=== PATIENT | female | born 1945 | race Caucasian/White ===

== ENCOUNTER → 2016-06-09 | Outpatient (CLI) | payer MEDICARE, BC ==
[~2016-06-09] MED LIST: APRESOLINE 25MG25 MG PO; ASPIR-LOW81 MG PO; ASPIRIN 81M81 MG/TA2 PO; ASPIRIN E.C. 8181 MG PO; BYSTOLIC5 MG PO; CALCIUM 600600 M2 PO; CALTRATE-600 W600 MG PO; COENZYME Q-1010 MG PO; COENZYME Q-10100 M1 PO; DEMADEX10 MG PO; DEMADEX5 MG PO; FISH OIL1 IU PO; HYDRODIURIL50 MG PO; LISINOPRIL10 MG PO; MASON NATURAL1200 MG PO; MULTIPLE VITAMI1 TA2 PO; MVI; NIASPAN1000 MG PO; NORVASC; NORVASC 10MG10 MG PO; PRILOSEC10 MG PO; PRILOTC PO; PRINIVIL40 MG PO; SIMVASTATIN10 MG PO; VITAMIN D31000 I1 PO; VITAMIN D31000 IU PO; ZANTAC 150MG T150 MG PO; ZOCOR 20MG20 MG PO
== END ==
LOC: MC.RAD 09:31
DX: Z12.31 Encounter for screening mammogram for malignant neoplasm of breast (principal)

== ENCOUNTER 2016-06-19 22:18 | Emergency (ER) | payer MEDICARE, BC ==
[~2016-06-19] VITALS: Ht 165.1 cm; Wt 90.9 kg
[~2016-06-19 22:18] MED LIST changes: -ASPIRIN 81M81 MG/TA2 PO; -BYSTOLIC5 MG PO; -CALCIUM 600600 M2 PO; -COENZYME Q-10100 M1 PO; -HYDRODIURIL50 MG PO; -MASON NATURAL1200 MG PO; -NORVASC 10MG10 MG PO; -PRILOTC PO; -VITAMIN D31000 I1 PO; -ZOCOR 20MG20 MG PO
[2016-06-19 22:21] VITALS: TEMP 98.5
[2016-06-19] MEDS ORDERED: ZOCOR 20MG20 MG PO (22:28)
[2016-06-19] MEDS ORDERED: NORVASC 10MG10 MG PO (22:28)
[2016-06-19] MEDS ORDERED: BYSTOLIC5 MG PO (22:29)
[2016-06-19] MEDS ORDERED: HYDRODIURIL50 MG PO (22:29)
[2016-06-19] MEDS ORDERED: COENZYME Q-10100 M1 PO (22:30)
[2016-06-19] MEDS ORDERED: ASPIRIN 81M81 MG/TA2 PO (22:30)
[2016-06-19] MEDS ORDERED: VITAMIN D31000 I1 PO (22:31)
[2016-06-19] MEDS ORDERED: CALCIUM 600600 M2 PO (22:31)
[2016-06-19] MEDS ORDERED: MASON NATURAL1200 MG PO (22:32)
[2016-06-19] MEDS ORDERED: PRILOTC PO (22:32)
[2016-06-19 22:51] LABS: ADJUSTED CALCIUM 9.4 mg/dL (8.4-10.2); ALANINE AMINOTRANSFERASE 49 U/L (9-52); ALBUMIN 4.3 gm/dL (3.5-5.0); ALKALINE PHOSPHATASE 74 U/L (50-136); ANION GAP 15 mmol/L (7-16); BILIRUBIN,TOTAL 0.8 mg/dL (0.0-1.0); BLOOD UREA NITROGEN 16 mg/dL (7-17); CALCIUM 9.6 mg/dL (8.4-10.2); CARBON DIOXIDE 25 mmol/L (22-30); CHLORIDE 98 mmol/L (98-107); CREATININE, serum 0.87 mg/dL (0.52-1.25); GLUCOSE 170 mg/dL (74-106); POTASSIUM 3.1 mmol/L (3.4-5.0); SODIUM 138 mmol/L (137-145); TOTAL PROTEIN 7.4 gm/dL (6.4-8.2); TROPONIN-I < 0.012 ng/mL (0.000-0.034)
[2016-06-19 22:52] LABS: BASO % 0.6 % (0.0-2.0); EOS # 0.1 (0.0-0.7); EOS % 2.1 % (0-4.0); GRAN # 3.1 (1.4-6.5); HEMATOCRIT 39.5 % (37.0-47.0); HEMOGLOBIN 13.7 g/dl (12.5-16.0); LYMPH # 2.8 (1.2-3.4); LYMPH % 42.5 % (20.0-51.0); MEAN CELL VOLUME 88 fl (80.0-100.0); MEAN CORPUSCULAR HEMOGLOBIN 30 pg (27.0-31.0); MEAN CORPUSCULAR HGB CONC 35 g/dl (33.0-37.0); MEAN PLATELET VOLUME 9.2 fl (7.4-10.4); MONO # 0.6 (0.1-0.6); MONO % 8.3 % (1.7-9.3); PLATELET COUNT 236 K/mm3 (130-400); RED BLOOD COUNT 4.51 M/mm3 (4.10-5.30); REDCELL DISTRIBUTION WIDTH-CV 14.4 % (11.5-14.5); WHITE BLOOD COUNT 6.6 K/mm3 (4.8-10.8)
[2016-06-19 22:54] LABS: PROTHROMBIN TIME 10.6 SECONDS (9.7-12.8)
[2016-06-19 22:55] LABS: CREATINE KINASE 147 U/L (30-135); LIPASE 137 U/L (23-300)
[2016-06-19 23:09] LABS: B-TYPE NATRIURETIC PEPTIDE 91 pg/mL (0-125)
[2016-06-20 01:13] VITALS: BP 145/73; PULSE 66
== END 2016-06-20 01:19 | disposition home or self-care (01) ==
LOC: COL.ER 22:18
PROVIDERS: Emergency Medicine
DX: R07.9 Chest pain, unspecified (principal); I10 Essential (primary) hypertension
CPT/HCPCS: J2405

== ENCOUNTER → 2016-06-27 | Outpatient (CLI) | payer MEDICARE, BC ==
[~2016-06-27] MED LIST changes: +ASPIRIN 81M81 MG/TA2 PO; +BYSTOLIC5 MG PO; +CALCIUM 600600 M2 PO; +COENZYME Q-10100 M1 PO; +HYDRODIURIL50 MG PO; +MASON NATURAL1200 MG PO; +NORVASC 10MG10 MG PO; +PRILOTC PO; +VITAMIN D31000 I1 PO; +ZOCOR 20MG20 MG PO
[2016-06-27 11:35] LABS: CALCIUM 9.7 mg/dL (8.4-10.2); CREATININE, serum 0.96 mg/dL (0.52-1.25)
== END ==
LOC: COL.LAB 10:41
PROVIDERS: Nurse Practitioner
DX: I10 Essential (primary) hypertension (principal)

== ENCOUNTER → 2016-08-25 | Outpatient (CLI) | payer MEDICARE, BC | LOC: COL.CARD 10:00 | DX: R03.0 Elevated blood-pressure reading, without diagnosis of hypertension (principal); R07.89 Other chest pain ==

== ENCOUNTER → 2017-07-04 | Outpatient (CLI) | payer MEDICARE, BC | LOC: MC.RAD 09:53 | DX: Z12.31 Encounter for screening mammogram for malignant neoplasm of breast (principal) ==

== ENCOUNTER → 2018-06-15 | Outpatient (CLI) | payer MEDICARE, BC | LOC: COL.RAD 06-12 10:30 | DX: E04.2 Nontoxic multinodular goiter (principal) ==

== ENCOUNTER → 2018-07-17 | Outpatient (CLI) | payer MEDICARE, BC | LOC: MC.RAD 10:41 | DX: Z12.31 Encounter for screening mammogram for malignant neoplasm of breast (principal) ==

== ENCOUNTER → 2019-09-16 | Outpatient (CLI) | payer MEDICARE, BC | LOC: MC.RAD 15:24 | DX: Z12.31 Encounter for screening mammogram for malignant neoplasm of breast (principal); N64.89 Other specified disorders of breast ==

== ENCOUNTER → 2019-09-24 | Outpatient (CLI) | payer MEDICARE, BC | LOC: MC.RAD 13:09 | DX: N63.20 Unspecified lump in the left breast, unspecified quadrant (principal) ==

== ENCOUNTER → 2020-03-31 | Outpatient (CLI) | payer MEDICARE, BC | LOC: MC.RAD 13:58 | DX: Z09 Encounter for follow-up examination after completed treatment for conditions other than malignant neoplasm (principal); N64.9 Disorder of breast, unspecified ==

== ENCOUNTER → 2020-09-29 | Outpatient (CLI) | payer MEDICARE, BC | LOC: MC.RAD 13:00 | DX: N63.20 Unspecified lump in the left breast, unspecified quadrant (principal) ==

== ENCOUNTER → 2021-09-30 | Outpatient (CLI) | payer MEDICARE, BC | LOC: MC.RAD 09:52 | DX: Z12.31 Encounter for screening mammogram for malignant neoplasm of breast (principal); Z78.0 Asymptomatic menopausal state ==

== ENCOUNTER 2023-09-18 06:40 | Emergency (ER) | payer MEDICARE, BC ==
[~2023-09-18] VITALS: Ht 162.6 cm; Wt 90.9 kg
[~2023-09-18 06:40] MED LIST changes: +NORCO 325 MG-51 TAB PO
[2023-09-18 06:50] VITALS: TEMP 98.3
[2023-09-18] MEDS ORDERED: Ondansetron 4 MG/2 ML VIAL IV ONE (07:15)
[2023-09-18] MEDS ORDERED: LR 1,000 ML IV ONE (07:15)
[2023-09-18 07:59] LABS: BASO % 0.4 % (0.0-2.0); EOS # 0.1 K/mm3 (0.0-0.7); EOS % 0.7 % (0.0-4.0); GRAN # 5.2 K/mm3 (1.4-6.5); GRAN % 75.3 % (42.2-75.2); HEMATOCRIT 43.3 % (37.0-47.0); LYMPH # 1.2 K/mm3 (1.2-3.4); LYMPH % 16.9 % (20.0-51.0); MEAN CELL VOLUME 89 fl (80.0-100.0); MEAN CORPUSCULAR HEMOGLOBIN 31 pg (27-31); MEAN CORPUSCULAR HGB CONC 35 g/dl (33.0-37.0); MEAN PLATELET VOLUME 9.1 fl (7.4-10.4); MONO # 0.4 K/mm3 (0.1-0.6); MONO % 6.1 % (1.7-9.3); PLATELET COUNT 219 K/mm3 (130-400); RED BLOOD COUNT 4.85 M/mm3 (4.10-5.30); REDCELL DISTRIBUTION WIDTH-CV 14.7 % (11.5-14.5)
[2023-09-18 08:13] LABS: ALBUMIN 4.1 g/dL (3.4-4.8); BILIRUBIN,TOTAL 0.7 mg/dL (0.2-1.2); CALCIUM 9.4 mg/dL (8.4-10.2); CREATININE, serum 0.91 mg/dL (0.57-1.11); POTASSIUM 3.9 mEq/L (3.5-4.5); TOTAL PROTEIN 7.4 g/dl (6.2-8.1)
[2023-09-18 08:18] LABS: C-REACTIVE PROTEIN 0.25 mg/dL (0.00-0.50)
[2023-09-18 09:47] VITALS: BP 143/76; PULSE 69
== END 2023-09-18 09:47 | disposition home or self-care (01) ==
LOC: COL.ER 06:40
PROVIDERS: Family Medicine
DX: K52.9 Noninfective gastroenteritis and colitis, unspecified (principal); E86.0 Dehydration
CPT/HCPCS: J2405; J7120

== ENCOUNTER → 2023-10-10 | Outpatient (CLI) | payer MEDICARE, BC | LOC: MC.RAD 09:56 | DX: Z12.31 Encounter for screening mammogram for malignant neoplasm of breast (principal) ==